=== PATIENT | female | born 1980 | race Hispanic/Latino ===

== ENCOUNTER 2017-10-31 23:29 | Emergency (ER) | payer SELFPAY ==
[2017-11-01] MEDS ORDERED: CEPHALEXIN 500 MG CAPSULE ONE (00:36)
[2017-11-01] MEDS ORDERED: SULFAMETHOX-TMP DS 800/160 TAB ONE (00:37)
== END 2017-11-01 00:56 | disposition home or self-care (01) ==
LOC: EDH 23:29
DX: L03.116 Cellulitis of left lower limb (principal); Z98.51 Tubal ligation status

== ENCOUNTER 2021-12-31 20:42 | Emergency (ER) | payer OTHER ==
[~2021-12-31] VITALS: Ht 152.4 cm; Wt 108.9 kg
[2021-12-31 21:26] LABS: APPEARANCE,URINE Clear (CLEAR); BILIRUBIN,URINE Negative (NEGATIVE); COLOR,URINE Yellow (YELLOW); GLUCOSE, URINE (UA) Negative (NEGATIVE); KETONES,URINE Negative (NEGATIVE); LEUKOCYTE ESTERASE ,URINE Negative (NEGATIVE); NITRATE,URINE Negative (NEGATIVE); OCCULT BLOOD,URINE Negative (NEGATIVE); PROTEIN,URINE Negative (NEGATIVE); UROBILINOGEN,URINE 0.2 mg/dL (0.2-1.0)
[2021-12-31] MEDS ORDERED: KETOROLAC 15MG/ML VIAL (15MG/ML) IM ONE (22:00)
[2021-12-31] MEDS ORDERED: CYCLOBENZAPRINE HCL 10 MG TABLET PO ONE (22:00)
[2021-12-31] MEDS ORDERED: IBUP-2070 PO (22:33)
[2021-12-31] MEDS ORDERED: CYCL10TA16 PO (22:33)
[2021-12-31 22:38] VITALS: BP 152/64
== END 2021-12-31 22:45 | disposition home or self-care (01) ==
LOC: EDH 20:42
DX: R10.9 Unspecified abdominal pain (principal); R35.0 Frequency of micturition; Z79.1 Long term (current) use of non-steroidal anti-inflammatories (NSAID)
CPT/HCPCS: 81003; 82948; 96372; 99283; J1885

== ENCOUNTER 2022-06-29 17:41 | Emergency (ER) | payer OTHER ==
[~2022-06-29] VITALS: Ht 162.6 cm; Wt 115.7 kg
[~2022-06-29 17:41] MED LIST: CYCL10TA16 PO; IBUP-2070 PO
[2022-06-29 17:46] VITALS: BP 136/77
[2022-06-29 18:00] LABS: BASOPHILS % (AUTO) 0.3 % (0.0-5.0); EOSINOPHILS % (AUTO) 1.6 % (0.0-8.0); HEMATOCRIT 37.4 % (36-48); MEAN CORPUSCULAR HEMOGLOBIN 28.9 pg (27.0-33.0); MEAN CORPUSCULAR HGB CONC 34.5 g/dL (32.0-36.0); MEAN CORPUSCULAR VOLUME 83.9 fL (79-99); MONOCYTES % (AUTO) 6.4 % (3.0-13.0); NEUTROPHILS % (AUTO) 67.2 % (40.0-77.0); PLATELET COUNT (AUTO) 331 K/uL (130-400); RED BLOOD CELL COUNT(AUTO) 4.46 MIL/uL (4.00-5.50); RED CELL DISTRIBUTION WIDTH 12.8 % (11.0-15.5)
[2022-06-29 18:08] LABS: CREATININE 0.7 mg/dL (0.5-1.5); POTASSIUM 3.8 mmol/L (3.5-5.1)
[2022-06-29 18:13] LABS: ALBUMIN 3.5 g/dL (3.5-5.0); TOTAL PROTEIN, SERUM 8.1 g/dL (6.0-8.3)
[2022-06-29 18:17] LABS: INR 0.94 (0.85-1.15); PROTHROMBIN TIME 10.3 SEC (9.6-11.6)
[2022-06-29 18:19] LABS: PARTIAL THROMBOPLASTIN TIME 26.8 SEC (26.3-35.5)
[2022-06-29] MEDS ORDERED: MORPHINE 2 MG SYG IVP ONE (18:30)
[2022-06-29] MEDS ORDERED: ONDANSETRON 4MG INJ IVP ONE (18:30)
[2022-06-29] MEDS ORDERED: OMEP20TA2 PO (18:32)
[2022-06-29] MEDS ORDERED: IBUP-1493 PO (18:32)
== END 2022-06-29 18:57 | disposition home or self-care (01) ==
LOC: EDH 17:41
DX: K80.20 Calculus of gallbladder without cholecystitis without obstruction (principal); Z79.1 Long term (current) use of non-steroidal anti-inflammatories (NSAID)
CPT/HCPCS: 99285; 96374; 76705; 71045; 96375; 84484; 80053; 83690; 85025; 85610; 85730; 36415; 93005; J2405

== ENCOUNTER 2024-10-13 15:17 | Emergency (ER) | payer SELFPAY ==
[~2024-10-13] VITALS: Ht 152.4 cm; Wt 115.7 kg
[~2024-10-13 15:17] MED LIST changes: -CYCL10TA16 PO; +IBUP-1493 PO; -IBUP-2070 PO; +OMEP20TA2 PO
[2024-10-13 16:06] VITALS: PULSE 107; RESP 20
[2024-10-13] MEDS: IpraTROPium/alBUTERol SULFATE 3 ML SOLUTION IH ONE (16:08)
[2024-10-13 16:26] VITALS: BP 125/80; PULSE 100; RESP 20; TEMP 98.6; O2SAT 97
--- NOTE | 2024-10-13 17:15 | HMCIMG ---
PORTABLE CHEST RADIOGRAPH INDICATION: Evaluate for pna COMPARISON: 06/29/2022 FINDINGS: Heart size is normal. The pulmonary vascularity and bola appear normal. No abnormal pulmonary parenchymal opacity or consolidation identified. No significant pleural effusion noted. No pneumothorax detected. IMPRESSION: No radiographic evidence for any acute cardiopulmonary process.
--- NOTE | 2024-10-13 18:19 | ERN ---
General Chief Complaint: Congestion Stated Complaint: SORE THROAT, SOB, COUGHING Time Seen by MD: 15:20 Time Seen by Midlevel: 15:20 Source: patient History of Present Illness Initial Comments Patient is a 44-year-old female presented to the emergency department for evaluation of flu-like symptoms that has been ongoing for the last couple of d ays. Symptoms consist of cough, congestion, in his throat. Denies any sick contacts. Denies any chest pain, shortness of breath, or any other symptoms at this time. Allergies: Coded Allergies: No Known Allergies (Unverified Allergy, Unknown, 12/31/21) Home Meds Active Scripts Benzonatate (Tessalon Perles) 100 Mg Cap, 100 MG PO BID for cough for 5 Days, #10 CAP 0 Refills Prov:PEDRO HINES 10/13/24 Azithromycin (Azithromycin) 250 Mg Tablet, 1 TAB PO AD for 5 Days, #6 TAB 0 Refills 2 the first day followed by 1 for days 2-5 Prov:PEDRO HINES 10/13/24 Methylprednisolone (Medrol) 4 Mg Tab.ds.pk, 1 TAB PO AD for 6 Days, #21 TAB 0 Refills 6 on day 1 then reduce by one tablet daily until gone Prov:PEDRO HINES 10/13/24 Omeprazole Magnesium (Prilosec Otc) 20 Mg Tablet.dr, 20 MG PO DAILY, #30 TAB Prov:GEORGE OATES MD 06/29/22 Ibuprofen (Motrin/Advil) 800 Mg Tab, 800 MG PO TID, #30 TAB Prov:GEORGE OATES MD 06/29/22 Past Medical History Past Medical History: No Pertinent History Past Surgical History: BTL Surgical History Other: OVARIAN CYST Family History Family History: HTN Social History Social History: Negative, Lives with family Female( History) History: Not Applicable ROS Dictation CONSTITUTIONAL: Negative except for HPI HEAD/FACE: Negative except for HPI EENT: Negative except for HPI RESPIRATORY: Negative except for HPI GASTROINTESTINAL/ABDOMINAL: Negative except for HPI GENITOURINARY: Negative except for HPI MUSCULOSKELETAL: Negative except for HPI INTEGUMENTARY: Negative except for HPI NEUROLOGICAL/PSYCH: Negative except for HPI HEMATOLOGIC/LYMPHATIC: Negative except for HPI All Systems Negative, Except as noted above. 13 point review of systems assessed and all negative except for above. Physical Exam Physical Exam Dictation Vital Signs reviewed General Appearance: Alert, oriented x 3, no acute distress, well developed, nourished. Head and Face: non-traumatic. Eyes: PERRL, pink conjunctivas, eyelid no trauma, anterior chamber with arcus senilis. Ears: Pinnas intact and no signs of trauma or erythema ear canals clear and no discharge TM no erythema Nose: No discharge, no bleeding. Oropharynx: Mouth normal, tongue pink, pharynx clear,no erythema, tonsils no exudates, no abscesses noted, mucous membrane moist Neck: Supple, non-tender, no thyromegaly, no masses, no JVD, no bruits Breast:Deferred Chest:No tenderness, no crepitus, no paradoxical movement, no retractions Lungs:Clear, well-ventilated, symmetric, no rales, no wheezing, no rhonchi, no stridor, good breath sounds bilaterally Heart: Regular rate, regular rhythm, no murmur, no gallops Vascular: no peripheral edema, Abdomen: Soft, positive bowel sounds, nondistended, no guarding, nontender, no rebound, no masses no hepatomegaly, no splenomegaly, no Mirza's sign, no hernias. Rectal: Deferred Genital: Deferred Neurological: Normal speech, motor function intact, sensory function intact Musculoskeletal: Neck nontender, full range of motion, back nontender, full range of motion, Extremities: nontender, full range of motion Skin: Color pink, dry, no turgor, no rash, no lacerations, no abrasions, no contusions. Lymphatic: Deferred MDM MDM: 44-year-old female presenting to the ER with flu-like symptoms. Physical examination is reassuring. Chest x-ray does not reveal any evidence of pneumonia. Initial plan was to swab patient but there was a delay in obtaining swabs in the patient with no longer like to wait for swabs. Her only concern was that she may have pneumonia but given that that is ruled out she was ready to be discharged home. Her symptoms are consistent with acute bronchitis. We will discharge home with supportive management. Return precautions discussed. Patient is stable for discharge at this time. Differential diagnosis: Viral syndrome, upper respiratory infection, pneumonia, bronchitis There are no social concerns with this patient. Prescription drug management Prescriptions will include: Azithromycin and Medrol pack Medical management and examination interpretation discussions were had by me with other qualified healthcare professionals as indicated for the patient's care. ED Course Orders Procedure Category Date Status Time Covid Rna Naat LAB 10/13/24 Logged 15:41 Influenza Type A & B, LAB 10/13/24 Logged Rapid 15:41 Rapid (Group A Strep) LAB 10/13/24 Logged 15:41 Chest 1vw RAD 10/13/24 Resulted 15:41 Ipratropium/Albuterol PHA 10/13/24 Complete Neb (Duoneb) 16:00 Current Medications Medications (Trade) Dose Ordered Sig/Angelina Route PRN Reason Start Time Stop Time Status Last Admin Dose Admin Albuterol (DUOneb) 1 UDVIAL ONCE ONCE IH 10/13/24 16:00 10/13/24 16:01 DC 10/13/24 16:08 Vital Signs Date Time Temp Pulse Resp B/P (MAP) Pulse Ox O2 Delivery O2 Flow Rate FiO2 10/13/24 16:26 98.6 100 20 125/80 97 Room Air* 0 21 10/13/24 16:20 98.6 100 20 175/80 97 0 10/13/24 16:06 107 [address] [place] [address] IMAGING REPORT Signed PATIENT: WANDA TINAJERO MR#: [id number] : 1980 SEX: F AGE: 44 LOCATION: [facility] ORDER 1542 STATUS: REG ER REPORT#: [id number] SERVICE 1541 REASON: r/o pna ORDERING PHYSICIAN: PEDRO HINES PROCEDURE: CXR1VW - CHEST 1VW PORTABLE CHEST RADIOGRAPH INDICATION: Evaluate for pna COMPARISON: 06/29/2022 FINDINGS: Heart size is normal. The pulmonary vascularity and bola appear normal. No abnormal pulmonary parenchymal opacity or consolidation identified. No significant pleural effusion noted. No pneumothorax detected. IMPRESSION: No radiographic evidence for any acute cardiopulmonary process. DICTATED BY: DERECK FRANCOIS MD DATE: 10/13/241711 ELECTRONICALLY SIGNED BY: DERECK FRANCOIS MD DATE: 10/13/241714 DX & DISP Disposition: Transfer Departure Impression: Primary Impression: Viral syndrome Additional Impression: Acute bronchitis Condition: Stable Scripts Benzonatate (Tessalon Perles) 100 Mg Cap 100 MG PO BID for cough for 5 Days, #10 CAP 0 Refills Prov: PEDRO HINES 10/13/24 Azithromycin (Azithromycin) 250 Mg Tablet 1 TAB PO AD for 5 Days, #6 TAB 0 Refills 2 the first day followed by 1 for days 2-5 Prov: PEDRO HINES 10/13/24 Methylprednisolone (Medrol) 4 Mg Tab.ds.pk 1 TAB PO AD for 6 Days, #21 TAB 0 Refills 6 on day 1 then reduce by one tablet daily until gone Prov: PEDRO HINES 10/13/24 Additional Instructions: Your chest x-ray does not show any evidence of pneumonia. You were given a breathing treatment in the ER. I have prescribed you several medications which should help improve your symptoms over the next couple of days. Follow up with your primary care doctor in 2-3 days for repeat evaluation. Return to the ER for any new or worsening symptoms Referrals: SELF,REFERRAL (PCP) Time of Disposition: 18:57 I have reviewed the case, and I agree with, Diagnosis and Plan I performed the substantive portion of the visit. I have reviewed and personally made and approve the management plan that is documented in the note by myself or the MELVIN. I acknowledge for responsibility for the patient's management plan. PEDRO HINES Oct 13, 2024 18:19
[2024-10-13] MEDS ORDERED: METH4TAB3 PO (18:59)
[2024-10-13] MEDS ORDERED: BENZ-39 PO (18:59)
[2024-10-13] MEDS ORDERED: AZIT250T9 PO (18:59)
== END 2024-10-13 19:19 | disposition home or self-care (01) ==
LOC: EDH 15:17
DX: J20.9 Acute bronchitis, unspecified (principal); B34.9 Viral infection, unspecified; Z79.1 Long term (current) use of non-steroidal anti-inflammatories (NSAID); Z79.899 Other long term (current) drug therapy; Z98.51 Tubal ligation status
CPT/HCPCS: 71045; 94640; 99283